=== PATIENT | female | born 1990 | race Caucasian/White ===

== ENCOUNTER → 2017-09-06 | Outpatient (CLI) | payer OTHER ==
[~2017-09-06] MED LIST: ACET325 PO; ALBU90OI INH; AMIT10 PO; AMIT25 PO; AZIT250 PO; BCP; BENTYL20 MG PO; BIRTHCONTROL; Bactrim Ds Tab1 EACH PO; CALCIUM PO; CEFU250 PO; CHOL10002; CHOL10002 PO; CIPR500 PO; CLIMARA1 EACH TOP; CLIN150 PO; CODGUAEL PO; CYCL10 PO; Colace250 MG PO; DIVA500EC; DOCU100 PO; DOXE10 PO; ESCI10; FLUT220OIA INH; Flovent 220 Ora12 GM INH; HYDACE5 PO; HYDACE5325 PO; HYDR1TAB94; HYDR1TAB94 PO; IBUP800 PO; INSLIS75I SC; IRON PO; IRON SUPPLEMENT PO; KETO10 PO; LACT10SY PO; LEVSOD25 PO; Levothyroxine200 MCG PO; MEDR150I IM; METCAR500 PO; METR500 PO; MULVITMINE PO; Miralax17 GM PO; Mobic7.5 MG PO; NAPR500EC PO; NYQUIL; Norco 5-325 Ta1 EACH PO; Nortriptyline H10 MG PO; Nuvaring Vagin1 EACH VG; ONDA4 PO; ONDA4ODT MM; ONDA8 PO; OTC DECONGESTANT; OXYACE5T PO; PANT40 PO; PARO10 PO; PARO20 PO; PROCODE120 PO; PROM25 PO; PROM25S PR; Percocet 10-321 EACH PO; Percocet 5-3251 EACH PO; Peri-Colace Ta1 EACH PO; Protonix40 MG PO; Pyridium200 MG PO; QUET100 PO; RXCYCL10 PO; RXHYDACE PO; RXTRAM50 PO; SERT25 PO; SULTRIDS PO; TRAM50 PO; Vibramycin100 MG PO; Zofran Odt4 MG PO; Zofran Odt4 MG SL; Zofran Odt8 MG SL; Zofran4 MG PO; [UNRECOGNIZED DRUG - OTHER]; [UNRECOGNIZED DRUG - OTHER]
[2017-09-06 11:10] LABS: BASOPHILS ABSOLUTE AUTO 0.03 K/mm3 (0.00-0.23); BASOPHILS PERCENT AUTO 1 % (0-2); EOSINOPHILS ABSOLUTE AUTO 0.13 K/mm3 (0.00-0.68); EOSINOPHILS PERCENT AUTO 2 % (0-6); Hematocrit 39.1 % (33.0-51.0); Hemoglobin 13.6 g/dL (11.5-16.0); IMMATURE GRAN ABSOLUTE AUTO 0.02 K/mm3 (0.00-0.10); IMMATURE GRAN PERCENT AUTO 0 % (0-1); LYMPHOCYTES ABSOLUTE AUTO 1.84 K/mm3 (0.84-5.20); LYMPHOCYTES PERCENT AUTO 28 % (21-46); MONOCYTES PERCENT AUTO 6 % (4-13); Mean Corpuscular HGB 30.6 pg (26.0-34.0); Mean Corpuscular HGB Conc 34.8 g/dL (31.5-36.5); Mean Corpuscular Volume 88 fL (80-100); Mean Platelet Volume 10.9 fL (9.1-12.4); NEUTROPHILS ABSOLUTE AUTO 4.07 K/mm3 (1.96-9.15); NEUTROPHILS PERCENT AUTO 63 % (41-73); Platelet Count 279 K/mm3 (150-400); RDW Coefficient Variation 13.2 % (11.7-14.2); RDW Standard Deviation 42.2 fL (35.1-46.3); Red Blood Cell Count 4.44 M/mm3 (3.80-5.20); White Blood Cell Count 6.49 K/mm3 (4.00-11.30)
[2017-09-06 11:23] LABS: Alanine Aminotransfer (ALT/SGP 32 U/L (12-78); Albumin, Blood 4.1 g/dL (3.4-5.0); Albumin/Globulin Ratio 1.2 (0.8-1.8); Alk Phos 82 U/L (40-126); Anion Gap 14 mmol/L (6-16); Aspartate Aminotrans (AST/SGOT 32 U/L (12-37); Bilirubin, Total 0.3 mg/dL (0.1-1.0); Blood Urea Nitrogen 19 mg/dL (8-24); Bun/Creatinine Ratio 22.6 (12.0-20.0); CO2, Blood 21 mmol/L (21-32); Calcium, Blood 9.1 mg/dL (8.5-10.1); Chloride, Blood 107 mmol/L (98-108); Creatinine, Blood 0.84 mg/dL (0.40-1.00); Globulin, Blood 3.4 g/dL (2.2-4.0); Glomerular Filtration Rate >60 (60-); Glucose, Blood 92 mg/dL (70-99); Potassium, Blood 4.5 mmol/L (3.5-5.5); Sodium, Blood 142 mmol/L (136-145); Total Protein, Blood 7.5 g/dL (6.4-8.2)
== END ==
LOC: LAB SHORT 11:04 → LAB EV 11:04
PROVIDERS: Physician Assistant Surgical
DX: R10.9 Unspecified abdominal pain (principal)
CPT/HCPCS: 80053; 85025

== ENCOUNTER 2017-10-28 08:40 | Emergency (ER) | payer OTHER ==
[~2017-10-28] VITALS: Ht 172.7 cm; Wt 77.1 kg
[2017-10-28] MEDS ORDERED: Estradiol0.5 MG (08:57)
[2017-10-28] MEDS ORDERED: Levothyroxine200 MCG PO (08:57)
[2017-10-28] MEDS ORDERED: Norco 5-325 Ta1 EACH PO (11:50)
== END 2017-10-28 12:07 | disposition home or self-care (01) ==
LOC: ER 08:40
DX: I88.9 Nonspecific lymphadenitis, unspecified (principal); N64.4 Mastodynia; K21.9 Gastro-esophageal reflux disease without esophagitis; F41.9 Anxiety disorder, unspecified; Z88.0 Allergy status to penicillin; Z88.2 Allergy status to sulfonamides; Z88.1 Allergy status to other antibiotic agents; Z88.8 Allergy status to other drugs, medicaments and biological substances; Z88.6 Allergy status to analgesic agent; Z79.899 Other long term (current) drug therapy
CPT/HCPCS: 71260; 99284; Q9967

== ENCOUNTER 2017-11-08 16:45 | Emergency (ER) | payer OTHER ==
[~2017-11-08] VITALS: Ht 175.3 cm; Wt 74.8 kg
[~2017-11-08 16:45] MED LIST changes: +Estradiol0.5 MG
[2017-11-08 17:14] LABS: BASOPHILS ABSOLUTE AUTO 0.02 K/mm3 (0.00-0.23); BASOPHILS PERCENT AUTO 0 % (0-2); EOSINOPHILS ABSOLUTE AUTO 0.04 K/mm3 (0.00-0.68); EOSINOPHILS PERCENT AUTO 0 % (0-6); Hematocrit 42.4 % (33.0-51.0); Hemoglobin 14.5 g/dL (11.5-16.0); IMMATURE GRAN ABSOLUTE AUTO 0.02 K/mm3 (0.00-0.10); IMMATURE GRAN PERCENT AUTO 0 % (0-1); LYMPHOCYTES ABSOLUTE AUTO 2.55 K/mm3 (0.84-5.20); LYMPHOCYTES PERCENT AUTO 27 % (21-46); MONOCYTES ABSOLUTE AUTO 0.61 K/mm3 (0.16-1.47); MONOCYTES PERCENT AUTO 6 % (4-13); Mean Corpuscular HGB 30.5 pg (26.0-34.0); Mean Corpuscular HGB Conc 34.2 g/dL (31.5-36.5); Mean Corpuscular Volume 89 fL (80-100); Mean Platelet Volume 10.8 fL (9.1-12.4); NEUTROPHILS ABSOLUTE AUTO 6.25 K/mm3 (1.96-9.15); NEUTROPHILS PERCENT AUTO 66 % (41-73); Platelet Count 294 K/mm3 (150-400); RDW Coefficient Variation 12.5 % (11.7-14.2); RDW Standard Deviation 40.5 fL (35.1-46.3); Red Blood Cell Count 4.76 M/mm3 (3.80-5.20); White Blood Cell Count 9.49 K/mm3 (4.00-11.30)
[2017-11-08 17:36] LABS: Alanine Aminotransfer (ALT/SGP 19 U/L (12-78); Albumin, Blood 4.5 g/dL (3.4-5.0); Albumin/Globulin Ratio 1.2 (0.8-1.8); Alk Phos 81 U/L (50-136); Anion Gap 9 mmol/L (6-16); Aspartate Aminotrans (AST/SGOT 19 U/L (12-37); Bilirubin, Total 0.4 mg/dL (0.1-1.0); Blood Urea Nitrogen 13 mg/dL (8-24); Bun/Creatinine Ratio 16.4 (12.0-20.0); CO2, Blood 22 mmol/L (21-32); Calcium, Blood 9.6 mg/dL (8.5-10.1); Chloride, Blood 112 mmol/L (98-108); Creatinine, Blood 0.79 mg/dL (0.40-1.00); Globulin, Blood 3.6 g/dL (2.2-4.0); Glomerular Filtration Rate >60 (60-); Glucose, Blood 90 mg/dL (70-99); Potassium, Blood 3.6 mmol/L (3.5-5.5); Sodium, Blood 143 mmol/L (136-145); Total Protein, Blood 8.1 g/dL (6.4-8.2)
[2017-11-08] MEDS ORDERED: Cleocin HCl300 MG PO (21:55)
[2017-11-08] MEDS ORDERED: Percocet 5-3251 EACH PO (21:55)
== END 2017-11-08 23:18 | disposition home or self-care (01) ==
LOC: ER 16:45
PROVIDERS: Emergency Medicine
DX: M94.0 Chondrocostal junction syndrome [Tietze] (principal); N61.0 Mastitis without abscess; F17.200 Nicotine dependence, unspecified, uncomplicated; Z88.0 Allergy status to penicillin; Z88.2 Allergy status to sulfonamides; Z88.1 Allergy status to other antibiotic agents; Z88.5 Allergy status to narcotic agent; Z88.8 Allergy status to other drugs, medicaments and biological substances; Z88.6 Allergy status to analgesic agent; Z79.899 Other long term (current) drug therapy
CPT/HCPCS: 36415; 71046; 80053; 85025; 93005; 93010; 96374; 96375; 99284; J1885; J2405; J3010

== ENCOUNTER → 2018-06-10 | Outpatient (CLI) | payer OTHER ==
[~2018-06-10] MED LIST changes: +Acetaminophen-1 EAC1 PO; +Cleocin HCl300 MG PO
[2018-06-12 03:10] LABS: CHLAMYDIA TRACHOMATIS, NAA Negative (Negative); NEISSERIA GONORRHOEAE, NAA Negative (Negative)
== END | disposition home or self-care (01) ==
LOC: LAB 15:27 → LAB SHORT 15:27
PROVIDERS: Nurse Practitioner Family
DX: E03.8 Other specified hypothyroidism (principal); Z72.51 High risk heterosexual behavior
CPT/HCPCS: 87491; 87591

== ENCOUNTER 2018-06-13 04:07 | Day surgery (SDC) | payer OTHER | END 2018-06-13 23:04 | disposition home or self-care (01) | LOC: MOI US 04:07 → MOI MAM 08:30 → MOI US 08:30 | DX: R92.8 Other abnormal and inconclusive findings on diagnostic imaging of breast (principal); Q85.8 Other phakomatoses, not elsewhere classified | CPT/HCPCS: 19083; 77065; 88305; A4648; G0279 ==

== ENCOUNTER → 2018-08-25 | Outpatient (CLI) | payer BC, OTHER ==
[2018-08-25 17:04] LABS: BASOPHILS ABSOLUTE AUTO 0.04 K/mm3 (0.00-0.23); BASOPHILS PERCENT AUTO 1 % (0-2); EOSINOPHILS ABSOLUTE AUTO 0.18 K/mm3 (0.00-0.68); EOSINOPHILS PERCENT AUTO 2 % (0-6); Hematocrit 39.9 % (33.0-51.0); Hemoglobin 13.7 g/dL (11.5-16.0); IMMATURE GRAN ABSOLUTE AUTO 0.01 K/mm3 (0.00-0.10); IMMATURE GRAN PERCENT AUTO 0 % (0-1); LYMPHOCYTES ABSOLUTE AUTO 2.09 K/mm3 (0.84-5.20); LYMPHOCYTES PERCENT AUTO 25 % (21-46); MONOCYTES ABSOLUTE AUTO 0.44 K/mm3 (0.16-1.47); MONOCYTES PERCENT AUTO 5 % (4-13); Mean Corpuscular HGB 30.6 pg (26.0-34.0); Mean Corpuscular HGB Conc 34.3 g/dL (31.5-36.5); Mean Corpuscular Volume 89 fL (80-100); Mean Platelet Volume 10.8 fL (9.1-12.4); NEUTROPHILS ABSOLUTE AUTO 5.65 K/mm3 (1.96-9.15); NEUTROPHILS PERCENT AUTO 67 % (41-73); Platelet Count 300 K/mm3 (150-400); RDW Standard Deviation 42.4 fL (35.1-46.3); Red Blood Cell Count 4.47 M/mm3 (3.80-5.20); White Blood Cell Count 8.41 K/mm3 (4.00-11.30)
[2018-08-25 17:14] LABS: Alanine Aminotransfer (ALT/SGP 22 U/L (12-78); Albumin, Blood 4.1 g/dL (3.4-5.0); Albumin/Globulin Ratio 1.1 (0.8-1.8); Alk Phos 89 U/L (40-126); Amylase, Blood 73 U/L (25-115); Anion Gap 10 mmol/L (6-16); Aspartate Aminotrans (AST/SGOT 18 U/L (12-37); Bilirubin, Total 0.4 mg/dL (0.1-1.0); Blood Urea Nitrogen 11 mg/dL (8-24); Bun/Creatinine Ratio 13.8 (12.0-20.0); CO2, Blood 25 mmol/L (21-32); Calcium, Blood 8.5 mg/dL (8.5-10.1); Chloride, Blood 104 mmol/L (98-108); Globulin, Blood 3.6 g/dL (2.2-4.0); Glomerular Filtration Rate >60 (60-); Glucose, Blood 93 mg/dL (70-99); Potassium, Blood 3.5 mmol/L (3.5-5.5); Sodium, Blood 139 mmol/L (136-145); Total Protein, Blood 7.7 g/dL (6.4-8.2)
== END ==
LOC: LAB EV 16:58 → LAB SHORT 16:58
PROVIDERS: Emergency Medicine
DX: R11.2 Nausea with vomiting, unspecified (principal)
CPT/HCPCS: 80053; 82150; 83690; 85025

== ENCOUNTER → 2019-01-04 | Outpatient (CLI) | payer OTHER ==
[2019-01-04 11:19] LABS: BASOPHILS ABSOLUTE AUTO 0.02 K/mm3 (0.00-0.23); BASOPHILS PERCENT AUTO 0 % (0-2); EOSINOPHILS ABSOLUTE AUTO 0.16 K/mm3 (0.00-0.68); EOSINOPHILS PERCENT AUTO 3 % (0-6); Hematocrit 38.8 % (33.0-51.0); Hemoglobin 13.3 g/dL (11.5-16.0); IMMATURE GRAN ABSOLUTE AUTO 0.01 K/mm3 (0.00-0.10); IMMATURE GRAN PERCENT AUTO 0 % (0-1); LYMPHOCYTES ABSOLUTE AUTO 2.09 K/mm3 (0.84-5.20); LYMPHOCYTES PERCENT AUTO 35 % (21-46); MONOCYTES ABSOLUTE AUTO 0.47 K/mm3 (0.16-1.47); MONOCYTES PERCENT AUTO 8 % (4-13); Mean Corpuscular HGB 30.9 pg (26.0-34.0); Mean Corpuscular HGB Conc 34.3 g/dL (31.5-36.5); Mean Corpuscular Volume 90 fL (80-100); Mean Platelet Volume 10.2 fL (9.1-12.4); NEUTROPHILS ABSOLUTE AUTO 3.28 K/mm3 (1.96-9.15); NEUTROPHILS PERCENT AUTO 54 % (41-73); Platelet Count 292 K/mm3 (150-400); RDW Coefficient Variation 12.9 % (11.7-14.2); RDW Standard Deviation 42.6 fL (35.1-46.3); Red Blood Cell Count 4.31 M/mm3 (3.80-5.20); White Blood Cell Count 6.03 K/mm3 (4.00-11.30)
[2019-01-04 11:54] LABS: Alanine Aminotransfer (ALT/SGP 31 U/L (12-78); Alk Phos 73 U/L (50-136); Anion Gap 9 mmol/L (6-16); Aspartate Aminotrans (AST/SGOT 22 U/L (12-37); Bilirubin, Total 0.3 mg/dL (0.1-1.0); Blood Urea Nitrogen 17 mg/dL (8-24); CO2, Blood 23 mmol/L (21-32); Calcium, Blood 8.7 mg/dL (8.5-10.1); Chloride, Blood 111 mmol/L (98-108); Creatinine, Blood 0.68 mg/dL (0.40-1.00); Globulin, Blood 3.9 g/dL (2.2-4.0); Glomerular Filtration Rate >60 (60-); Glucose, Blood 90 mg/dL (70-99); Sodium, Blood 143 mmol/L (136-145); Total Protein, Blood 7.9 g/dL (6.4-8.2)
[2019-01-07 04:07] LABS: CHLAMYDIA BY NAA Negative (Negative); GONOCOCCUS BY NAA Negative (Negative); TRICH VAG BY NAA Negative (Negative)
== END | disposition home or self-care (01) ==
LOC: LAB SHORT 11:09 → LAB EV 11:09
PROVIDERS: Physician Assistant
DX: R10.9 Unspecified abdominal pain (principal); R10.2 Pelvic and perineal pain
CPT/HCPCS: 80053; 83690; 85025; 87070; 87205; 87491; 87591; 87661

== ENCOUNTER 2019-01-23 10:51 | Day surgery (SDC) | payer OTHER ==
[~2019-01-23] VITALS: Ht 172.7 cm; Wt 69.8 kg
--- NOTE | 2019-01-23 13:46 | NUR ---
01/23/19 1346 Daphne Philip LATE ENTRY---UPON ARRIVAL TO STEPDOWN PATIENT C/O 8/10 ABDOMINAL PAIN THAT IS SHARP IN NATURE ON HER RIGHT SIDE. DR MCKEE EVALUATED PAIN AND ORDERED TO WATCH FOR 5 MINUTES. PATIENT GIVEN WARM BLANKET TO PUT OVER THE AREA AND WARM BLANKET TO COVER HER. DR MCKEE BACK IN ROOM AND ASSESS PATIENT SHE ADMITS PAIN NOW 6/10 HE GIVES ORDER FOR FENTANYL 25MCG NOW ONE DOSE THEN DISCHARGE THE PATIENT TO HOME. MEDICATION GIVEN PER ORDER. PATIENT GIVEN 10 MINUTES TO REST THEN SHE RATED HER PAIN 4/10 AND FEELING BETTER. DISCHARGED PER MD ORDER
== END 2019-01-23 13:30 | disposition home or self-care (01) ==
LOC: ORSCSDS 10:51
PROVIDERS: Internal Medicine Gastroenterology
PROC: 0DB98ZX Excision of Duodenum, Via Natural or Artificial Opening Endoscopic, Diagnostic (ICD-10-PCS; principal; 2019-01-23 12:15)
PROC: 0DB58ZX Excision of Esophagus, Via Natural or Artificial Opening Endoscopic, Diagnostic (ICD-10-PCS; principal; 2019-01-23 12:15)
PROC: 0DBE8ZX Excision of Large Intestine, Via Natural or Artificial Opening Endoscopic, Diagnostic (ICD-10-PCS; principal; 2019-01-23 12:15)
PROC: 0DB68ZX Excision of Stomach, Via Natural or Artificial Opening Endoscopic, Diagnostic (ICD-10-PCS; principal; 2019-01-23 12:15)
DX: R63.4 Abnormal weight loss (principal); R11.0 Nausea; D36.10 Benign neoplasm of peripheral nerves and autonomic nervous system, unspecified; K64.8 Other hemorrhoids; K44.9 Diaphragmatic hernia without obstruction or gangrene; J45.909 Unspecified asthma, uncomplicated; E03.9 Hypothyroidism, unspecified; F41.9 Anxiety disorder, unspecified; Z79.899 Other long term (current) drug therapy
CPT/HCPCS: 88305; 88342; J2704; J3010; J7120

== ENCOUNTER → 2019-02-19 | Outpatient (CLI) | payer OTHER ==
[2019-02-20 09:52] LABS: Candida species (DNA Probe) Positive (NEGATIVE); G. vaginalis (DNA Probe) Negative (NEGATIVE); T. vaginalis (DNA Probe) Negative (NEGATIVE)
== END ==
LOC: LAB EV 08:30 → LAB SHORT 08:30
PROVIDERS: Nurse Practitioner Family
DX: N76.0 Acute vaginitis (principal)
CPT/HCPCS: 87480; 87510; 87660

== ENCOUNTER → 2019-09-22 | Outpatient (CLI) | payer OTHER | END | disposition home or self-care (01) | LOC: LAB SHORT 14:06 → PLD 14:06 | DX: D37.05 Neoplasm of uncertain behavior of pharynx (principal) | CPT/HCPCS: 88305 ==

== ENCOUNTER → 2020-02-17 | Outpatient (CLI) | payer OTHER | END | disposition home or self-care (01) | LOC: LAB 18:13 → LAB SHORT 18:13 | DX: R30.0 Dysuria (principal) | CPT/HCPCS: 87086 ==

== ENCOUNTER 2023-11-18 16:29 | Emergency (ER) | payer OTHER ==
[~2023-11-18] VITALS: Ht 170.2 cm; Wt 81.7 kg
[~2023-11-18 16:29] MED LIST changes: +ACET500 PO; +DHEA25 M1 PO; +DOCU100; +HYDPAM50 PO; +MULVITA PO; +OMEP20ER; +OXYB5ER PO; +PARO30 PO
[2023-11-18 16:37] VITALS: BP 135/106
[2023-11-18] MEDS ORDERED: Diphth,Pertuss(Acell),Tet Vac 0.5 ML VIAL IM ONE (16:40)
[2023-11-18] MEDS ORDERED: Ketorolac Tromethamine 30mg Vial IM ONE (17:15)
== END 2023-11-18 18:33 | disposition home or self-care (01) ==
LOC: ER 16:29
DX: S91.332A Puncture wound without foreign body, left foot, initial encounter (principal); F17.200 Nicotine dependence, unspecified, uncomplicated; E03.9 Hypothyroidism, unspecified; W27.1XXA Contact with garden tool, initial encounter; Z23 Encounter for immunization; Z79.899 Other long term (current) drug therapy; Z88.0 Allergy status to penicillin; Z88.2 Allergy status to sulfonamides; Z88.1 Allergy status to other antibiotic agents; Z88.5 Allergy status to narcotic agent; Z88.6 Allergy status to analgesic agent
CPT/HCPCS: 12001; 73630; 90471; 90715; 96372-59; 99283-25; J1885

== ENCOUNTER 2024-05-22 11:24 | Emergency (ER) | payer OTHER ==
[~2024-05-22] VITALS: Ht 167.6 cm; Wt 68.0 kg
[2024-05-22] MEDS ORDERED: LORazepam 1 MG Tab PO ONE (11:30)
[2024-05-22] MEDS ORDERED: Ondansetron 4 MG SoluTab SL ONE (11:40)
[2024-05-22] MEDS ORDERED: Albuterol 2.5 MG/3 ML VIAL INH ONE (12:30)
[2024-05-22 13:10] LABS: BASOPHILS ABSOLUTE AUTO 0.03 K/mm3 (0.00-0.23); BASOPHILS PERCENT AUTO 0 % (0-2); EOSINOPHILS ABSOLUTE AUTO 0.14 K/mm3 (0.00-0.68); EOSINOPHILS PERCENT AUTO 2 % (0-6); Hemoglobin 14.7 g/dL (11.5-16.0); IMMATURE GRAN ABSOLUTE AUTO 0.02 K/mm3 (0.00-0.10); IMMATURE GRAN PERCENT AUTO 0 % (0-1); LYMPHOCYTES ABSOLUTE AUTO 3.16 K/mm3 (0.84-5.20); LYMPHOCYTES PERCENT AUTO 38 % (21-46); MONOCYTES ABSOLUTE AUTO 0.48 K/mm3 (0.16-1.47); MONOCYTES PERCENT AUTO 6 % (4-13); Mean Corpuscular HGB 30.3 pg (26.0-34.0); Mean Corpuscular Volume 87 fL (80-100); Mean Platelet Volume 10.1 fL (9.1-12.4); NEUTROPHILS ABSOLUTE AUTO 4.58 K/mm3 (1.96-9.15); NEUTROPHILS PERCENT AUTO 54 % (41-73); Platelet Count 367 K/mm3 (150-400); RDW Coefficient Variation 12.8 % (11.7-14.2); Red Blood Cell Count 4.85 M/mm3 (3.80-5.20); White Blood Cell Count 8.41 K/mm3 (4.00-11.30)
[2024-05-22] MEDS ORDERED: Acetaminophen 500 MG Tab PO ONE (13:15)
[2024-05-22] MEDS ORDERED: LORazepam 2 MG/ML 1ML Injection IV PRN (13:15)
[2024-05-22 13:29] LABS: Albumin, Blood 4.3 g/dL (3.4-5.0); Albumin/Globulin Ratio 1.1 (0.8-1.8); Bilirubin, Total 0.6 mg/dL (0.1-1.0); Bun/Creatinine Ratio 10.4 (12.0-20.0); Calcium, Blood 9.9 mg/dL (8.5-10.1); Creatinine, Blood 0.86 mg/dL (0.40-1.00); Globulin, Blood 3.8 g/dL (2.2-4.0); Potassium, Blood 3.7 mmol/L (3.5-5.5); Total Protein, Blood 8.1 g/dL (6.4-8.2)
[2024-05-22] MEDS ORDERED: Ondansetron HCl 2 MG / ML 2ML Vial IV ONE (13:35)
[2024-05-22] MEDS ORDERED: FentaNYL Citrate 50 MCG/ML 2 ML Injection IV PRN (14:40)
[2024-05-22 15:06] VITALS: BP 124/93
[2024-05-22] MEDS ORDERED: LORA.5 PO (15:30)
[2024-05-22] MEDS ORDERED: Percocet 5-3251 EACH PO (15:30)
[2024-05-22] MEDS ORDERED: ONDA4ODT MM (15:40)
== END 2024-05-22 15:54 | disposition home or self-care (01) ==
LOC: ER 11:24
PROVIDERS: Student in an Organized Health Care Education/Training Program
DX: F41.9 Anxiety disorder, unspecified (principal); R07.89 Other chest pain; F17.290 Nicotine dependence, other tobacco product, uncomplicated; Z88.0 Allergy status to penicillin; Z88.1 Allergy status to other antibiotic agents; Z88.2 Allergy status to sulfonamides; Z88.5 Allergy status to narcotic agent; Z88.6 Allergy status to analgesic agent; Z88.8 Allergy status to other drugs, medicaments and biological substances; Z79.890 Hormone replacement therapy; Z79.899 Other long term (current) drug therapy
CPT/HCPCS: 71046; 71260; 80053; 84484; 85025; 85379; 93005; 93010; 94640; 94664; 96374; 96375; 99284-25; A9270; J2060; J2405; J3010; Q9967

== ENCOUNTER 2024-06-21 16:26 | Inpatient (IN) | payer OTHER ==
[~2024-06-21] VITALS: Ht 170.2 cm; Wt 83.0 kg
[~2024-06-21 16:26] MED LIST changes: +LORA.5 PO
[2024-06-21] MEDS ORDERED: HYDROmorphone HCl/Pf 1MG SYR IV ONE ×2 (17:20→20:05)
[2024-06-21] MEDS ORDERED: Ondansetron HCl 2 MG / ML 2ML Vial IV ONE (17:25)
[2024-06-21] MEDS ORDERED: LEVSOD150 PO (17:34)
[2024-06-21] MEDS ORDERED: ESZO3 PO (17:34)
[2024-06-21] MEDS ORDERED: PARO20 PO (17:34)
[2024-06-21] MEDS ORDERED: Oxybutynin Chlo10 MG PO (17:34)
[2024-06-21 17:50] LABS: BASOPHILS ABSOLUTE AUTO 0.04 K/mm3 (0.00-0.23); BASOPHILS PERCENT AUTO 1 % (0-2); EOSINOPHILS ABSOLUTE AUTO 0.14 K/mm3 (0.00-0.68); EOSINOPHILS PERCENT AUTO 2 % (0-6); Hematocrit 41.3 % (33.0-51.0); Hemoglobin 14.5 g/dL (11.5-16.0); IMMATURE GRAN ABSOLUTE AUTO 0.04 K/mm3 (0.00-0.10); IMMATURE GRAN PERCENT AUTO 1 % (0-1); LYMPHOCYTES ABSOLUTE AUTO 2.69 K/mm3 (0.84-5.20); LYMPHOCYTES PERCENT AUTO 36 % (21-46); MONOCYTES ABSOLUTE AUTO 0.45 K/mm3 (0.16-1.47); MONOCYTES PERCENT AUTO 6 % (4-13); Mean Corpuscular HGB 29.8 pg (26.0-34.0); Mean Corpuscular HGB Conc 35.1 g/dL (31.5-36.5); Mean Corpuscular Volume 85 fL (80-100); Mean Platelet Volume 10.7 fL (9.1-12.4); NEUTROPHILS PERCENT AUTO 56 % (41-73); Platelet Count 350 K/mm3 (150-400); RDW Coefficient Variation 12.2 % (11.7-14.2); RDW Standard Deviation 37.4 fL (35.1-46.3); Red Blood Cell Count 4.87 M/mm3 (3.80-5.20); White Blood Cell Count 7.56 K/mm3 (4.00-11.30)
[2024-06-21 17:55] LABS: Albumin, Blood 4.2 g/dL (3.4-5.0); Albumin/Globulin Ratio 1.1 (0.8-1.8); Bilirubin, Total 0.3 mg/dL (0.1-1.0); Bun/Creatinine Ratio 14.6 (12.0-20.0); Calcium, Blood 9.5 mg/dL (8.5-10.1); Creatinine, Blood 0.68 mg/dL (0.40-1.00); Globulin, Blood 3.8 g/dL (2.2-4.0); Potassium, Blood 3.6 mmol/L (3.5-5.5)
[2024-06-21] MEDS ORDERED: Lidocaine 4% 1 Patch TOP ONE (18:15)
[2024-06-21] MEDS ORDERED: Acetaminophen 500 MG Tab PO ONE (18:15)
[2024-06-21] MEDS ORDERED: LORazepam 2 MG/ML 1ML Injection IV ONE ×2 (18:15→18:40)
[2024-06-21] MEDS ORDERED: Ketorolac Tromethamine 15mg Vial IV ONE (18:15)
[2024-06-21] MEDS ORDERED: NS 1,000 ML IV SCH (22:00)
[2024-06-21] MEDS ORDERED: FLU VACC TS2024-25(6MOS UP)/PF 45 MCG/0.5 ML SYRINGE IM SCH (22:00)
[2024-06-21] MEDS ORDERED: Enoxaparin 40 MG/0.4 ML SYR SC SCH (22:00)
[2024-06-21] MEDS ORDERED: Ondansetron HCl 2 MG / ML 2ML Vial IV PRN (22:00)
[2024-06-21] MEDS ORDERED: FentaNYL Citrate 50 MCG/ML 2 ML Injection IV PRN (22:00)
[2024-06-21] MEDS ORDERED: NEURONTIN300 MG PO (23:43)
[2024-06-21] MEDS ORDERED: Docusate Sodium 100 MG Cap PO PRN ×2 (23:45→23:50)
[2024-06-21] MEDS ORDERED: Zolpidem Tartrate 5 MG Tab PO SCH (23:48)
--- NOTE | 2024-06-21 23:53 | NUR ---
CALLED ER AND GOT REPORT FROM GRACIE DURAN AT 0739. STS WILL START FLUIDS AND GIVE PAIN MEDICATION AND THEN BRING PT UP TO 333. REPORT PASSED ON FROM ME TO PRIMARY RN AT [id number].
[2024-06-22 00:01] LABS: Free Thyroxine 1.82 ng/dL (0.70-1.60)
[2024-06-22 00:03] LABS: Thyroid Stimulating Hormone 0.074 uIU/mL (0.360-4.800)
[2024-06-22 00:31] VITALS: BP 115/79
[2024-06-22 00:36] LABS: Source, Urine Clean Catch
[2024-06-22 00:45] LABS: Bilirubin, Urine Neg (Neg); Blood, Urine Neg (Neg); Glucose Qualitative, Urine Neg (Neg); Ketones, Urine Neg (Neg); Leukocyte Esterase, Urine 1+ (Neg); Nitrite, Urine Neg (Neg); Protein, Urine Neg (Neg); Urobilinogen, Urine NORM (Normal)
[2024-06-22 00:51] LABS: Appearance, Urine Clear (Clear); Color, Urine Yellow (P-Yellow)
[2024-06-22 00:52] LABS: Bacteria Few /hpf; Red Blood Cells, Urine Not Seen /hpf (0-2); Squamous Epithelial Cells Few /hpf (Few); White Blood Cells, Urine 0-2 /hpf (0-5)
--- NOTE | 2024-06-22 02:11 | NUR ---
ADMIT NOTE FOR 0020 REPORT WAS RECEIVED FROM THE ER. PT WAS BROUGHT DOWN ON THE GURNEY AND TRANSFERRED OVER TO THE BED. PT ALERT ORIENTED X 4 ABLE TO VERBALIZE NEEDS AMBULATES TO BATHROOM WITH SBA. C/O BACK AND SIDE PAIN MEDICATED WITH FENTANYL WITH GOOD PAIN RELIEF. NO SKIN CONCERNS ON ADMIT. SHE WAS ORIENTED TO THE STAFF AND ROOM. REMAINS ON TELEMETRY AT NSR AT 86. REMAINS ON NS AT 100. SHE IS CURRENTLY NPO R/T NAUSEA. SHE HAS A HX OF BILATERAL MASTECTOMY. SHES RESTING IN BEDAT THIS TIME WITH CALL LIGHT IN REACH
--- NOTE | 2024-06-22 04:22 | NUR ---
SHIFT SUMMARY PT ALERT ORIENTED X 4 ABLE TO VERBALIZE NEEDS CALLS APPROPRIATELY. GETS UP TO BATHROOM WITH SBA. C/O SEVERE BACK PAIN MEDICATED WITH FENTANYL WITH GOOD RELIEF. SHE WAS ADMITTED FROM ER AT 0020 WITH DX OF BACK PAIN AND HX OF OVARIAN AND KIDNEY CANCER. REMAINS ON NS AT 75. SHE REMAINS NPO R/T NAUSEA REMAINS ON TELEMETRY AT NSR SHES HAD BILATERAL MASTEWCTOMIES. RESTING IN BED AT THIS TIME WITH CALL LIGHT IN REACH
[2024-06-22 05:37] VITALS: BP 111/78
[2024-06-22 05:52] LABS: BASOPHILS ABSOLUTE AUTO 0.03 K/mm3 (0.00-0.23); BASOPHILS PERCENT AUTO 1 % (0-2); EOSINOPHILS PERCENT AUTO 4 % (0-6); Hemoglobin 13.2 g/dL (11.5-16.0); IMMATURE GRAN ABSOLUTE AUTO 0.01 K/mm3 (0.00-0.10); IMMATURE GRAN PERCENT AUTO 0 % (0-1); LYMPHOCYTES ABSOLUTE AUTO 2.09 K/mm3 (0.84-5.20); LYMPHOCYTES PERCENT AUTO 39 % (21-46); MONOCYTES ABSOLUTE AUTO 0.59 K/mm3 (0.16-1.47); MONOCYTES PERCENT AUTO 11 % (4-13); Mean Corpuscular HGB 29.7 pg (26.0-34.0); Mean Platelet Volume 10.6 fL (9.1-12.4); NEUTROPHILS ABSOLUTE AUTO 2.51 K/mm3 (1.96-9.15); NEUTROPHILS PERCENT AUTO 46 % (41-73); Platelet Count 301 K/mm3 (150-400); RDW Coefficient Variation 12.5 % (11.7-14.2); RDW Standard Deviation 40.5 fL (35.1-46.3); Red Blood Cell Count 4.44 M/mm3 (3.80-5.20); White Blood Cell Count 5.43 K/mm3 (4.00-11.30)
[2024-06-22 05:53] LABS: Mean Corpuscular Volume 90 fL (80-100)
[2024-06-22] MEDS ORDERED: Levothyroxine Sodium 0.15 MG Tab PO SCH ×2 (06:00)
[2024-06-22 06:22] LABS: Albumin, Blood 3.6 g/dL (3.4-5.0); Albumin/Globulin Ratio 1.1 (0.8-1.8); Bilirubin, Total 0.4 mg/dL (0.1-1.0); Bun/Creatinine Ratio 12.6 (12.0-20.0); Calcium, Blood 9.1 mg/dL (8.5-10.1); Creatinine, Blood 1.03 mg/dL (0.40-1.00); Globulin, Blood 3.4 g/dL (2.2-4.0); Potassium, Blood 4.3 mmol/L (3.5-5.5)
[2024-06-22 07:20] VITALS: BP 88/64
[2024-06-22] MEDS ORDERED: OxyCODONE HCL 5 MG TAB PO PRN (08:20)
[2024-06-22] MEDS ORDERED: LORazepam 2 MG/ML 1ML Injection IV PRN (08:30)
[2024-06-22] MEDS ORDERED: HYDROmorphone HCl/Pf 1MG SYR IV PRN (08:30)
[2024-06-22] MEDS ORDERED: PARoxetine HCl 20 MG Tab PO SCH ×2 (09:00)
[2024-06-22] MEDS ORDERED: oxyBUTYnin chloride 5 MG TAB PO SCH ×2 (09:00)
[2024-06-22 09:58] VITALS: BP 103/81
[2024-06-22 16:11] VITALS: BP 92/55
--- NOTE | 2024-06-22 18:33 | NUR ---
PATIENT A/OX4, UP WITH SBA TO BSC. VERY PAINFUL THIS SHIFT, ALTERNATING BETWEEN FENTANYL, DILAUDID AND OXYCODONE. MAINTAINING SATS >95% ON RA. 1 EPISODE OF VOMITTING, ZOFRAN GIVEN X2 THIS SHIFT TO CONTROL NAUSEA. PATIENT TO HAVE MRI OF SPINE TOMORROW, UNABLE TO DO TODAY BECAUSE 24 HOURS MUST PASS BEFORE CONTRAST CAN BE GIVEN AGAIN. ATIVAN ORDERED PRIOR TO MRI. PATIENT PLEASANT AND COOPERATIVE, ABLE TO MAKE NEEDS KNOWN.
[2024-06-22 19:23] VITALS: BP 101/62
[2024-06-23 03:17] VITALS: BP 98/56
--- NOTE | 2024-06-23 04:56 | NUR ---
SHIFT SUMMARY 33 YR F ADMITTED ON 06/22/24. FULL CODE. NO ACUTE CHANGES THIS SHIFT. PT HAS BEEN PAINFUL ALL SHIFT IN HER BACK AND SHOULDERS. MEDICATED W/ DILAUIDID AND OXY. NO FENTANYL GIVEN THIS SHIFT. PT HAS HAD NO C/O N/V THIS SHIFT. CONTINUOUS PULSE BIOX WAS REMOVED DUE TO A GREATER NEED FOR ANOTHER PT AND A SHORTAGE OF THEM HOSPITAL WIDE. O2 SATS STAYED WNL UNTIL TIME IT WAS DC'D. PT IS SBA TO BEDSIDE COMMODE AND CALLS APPROPRIATELY FOR ASSISTANCE. WILL CONTINUE TO MONITOR. BED IN LOW POSITION AND CALL LIGHT IN REACH.
[2024-06-23 07:00] VITALS: BP 120/71
[2024-06-23 07:06] LABS: BASOPHILS ABSOLUTE AUTO 0.02 K/mm3 (0.00-0.23); BASOPHILS PERCENT AUTO 0 % (0-2); EOSINOPHILS ABSOLUTE AUTO 0.18 K/mm3 (0.00-0.68); EOSINOPHILS PERCENT AUTO 3 % (0-6); Hematocrit 38.9 % (33.0-51.0); Hemoglobin 12.8 g/dL (11.5-16.0); IMMATURE GRAN ABSOLUTE AUTO 0.01 K/mm3 (0.00-0.10); IMMATURE GRAN PERCENT AUTO 0 % (0-1); LYMPHOCYTES ABSOLUTE AUTO 2.21 K/mm3 (0.84-5.20); LYMPHOCYTES PERCENT AUTO 40 % (21-46); MONOCYTES ABSOLUTE AUTO 0.45 K/mm3 (0.16-1.47); MONOCYTES PERCENT AUTO 8 % (4-13); Mean Corpuscular HGB 29.8 pg (26.0-34.0); Mean Corpuscular HGB Conc 32.9 g/dL (31.5-36.5); Mean Corpuscular Volume 91 fL (80-100); Mean Platelet Volume 10.7 fL (9.1-12.4); NEUTROPHILS ABSOLUTE AUTO 2.69 K/mm3 (1.96-9.15); NEUTROPHILS PERCENT AUTO 48 % (41-73); Platelet Count 283 K/mm3 (150-400); RDW Coefficient Variation 12.6 % (11.7-14.2); RDW Standard Deviation 41.2 fL (35.1-46.3); Red Blood Cell Count 4.29 M/mm3 (3.80-5.20); White Blood Cell Count 5.56 K/mm3 (4.00-11.30)
[2024-06-23 07:22] LABS: Bun/Creatinine Ratio 8.5 (12.0-20.0); Calcium, Blood 8.6 mg/dL (8.5-10.1); Creatinine, Blood 0.94 mg/dL (0.40-1.00); Potassium, Blood 3.8 mmol/L (3.5-5.5)
[2024-06-23] MEDS ORDERED: Calcium Carbonate 500 MG Tab Chew PO PRN (07:45)
[2024-06-23] MEDS ORDERED: Ondansetron HCl 2 MG / ML 2ML Vial IV PRN (07:45)
[2024-06-23] MEDS ORDERED: OxyCODONE 5 mg/Acetamin 325 mg TABLET PO PRN (07:50)
[2024-06-23] MEDS ORDERED: FentaNYL Citrate 50 MCG/ML 2 ML Injection IV PRN (15:35)
--- NOTE | 2024-06-23 17:38 | NUR ---
PATIENT DC'D TO HOME WITH FAMILY. DC INSTRUCTIONS AND EDUCATION DISCUSSED WITH PATIENT AND COPY PROVIDED. RX MEDICATIONS SENT TO [employer]. PATIENT DENIES ANY FURTHER QUESTIONS OR CONCERNS.
--- NOTE | 2024-06-23 17:47 | NUR ---
PATIENT A/OX4, UP WITH SBA TO BSC. BACK PAIN THAT RADIATES TO R SIDE PERSISTS. DILAUDID, FENTANYL AND OXYCODONE GIVEN TO TREAT. ZOFRAN GIVEN X2 FOR NAUSEA/VOMITTING WITH STATED RELEIF. PATIENT WENT DOWN FOR MRI, BUT WAS UNABLE TO STAY STILL LONG ENOUGH TO GET CLEAR IMAGES PER PATIENT. VSS, ON RA. CONTINUOUS BIOX IN USE. ANXIOUS, BUT COOPERATIVE WITH CARE AND ABLE TO MAKE NEEDS KNOWN.
[2024-06-24 03:08] VITALS: BP 106/77
--- NOTE | 2024-06-24 03:43 | NUR ---
SHIFT SUMMARY PT'S PAIN IS NOT WELL CONTROLLED W/ PRESCRIBED MEDS. SHE IS REQUESTING PAIN MEDS APPROX EVERY HOUR OR SOONER. SHE IS CURRENTLY RECEIVING FENTANYL, DILAUDID, AND OXYCODONE. SHE STATES PAIN LEVELS FROM 8-10. AT TIMES SHE SOBS UNCONTROLABLY. SHE SAYS VERY LITTLE EXCEPT TO EXPRESS HER PAIN. CONTINUOUS BIOX IN PLACE. O2 SATS DROPPED TO 86/87 VERY BRIEFLY TWICE DURING THIS SHIFT THEN WENT BACK UP TO 90'S. PT HAS NO C/O SOB OR CHEST PAIN. WILL CONTINUE TO MONITOR AND REPORT TO DAYSHIFT. BED IN LOW POSITION AND CALL LIGHT IN REACH.
[2024-06-24] MEDS ORDERED: OxyCODONE 5 mg/Acetamin 325 mg TABLET PO PRN (06:35)
[2024-06-24 07:23] VITALS: BP 96/69
[2024-06-24] MEDS ORDERED: OxyCODONE 10/Acetamin 325 TABLET PO PRN (07:45)
[2024-06-24 07:57] LABS: BASOPHILS ABSOLUTE AUTO 0.03 K/mm3 (0.00-0.23); BASOPHILS PERCENT AUTO 0 % (0-2); EOSINOPHILS ABSOLUTE AUTO 0.12 K/mm3 (0.00-0.68); EOSINOPHILS PERCENT AUTO 2 % (0-6); Hematocrit 40.7 % (33.0-51.0); Hemoglobin 13.7 g/dL (11.5-16.0); IMMATURE GRAN ABSOLUTE AUTO 0.02 K/mm3 (0.00-0.10); IMMATURE GRAN PERCENT AUTO 0 % (0-1); LYMPHOCYTES ABSOLUTE AUTO 1.36 K/mm3 (0.84-5.20); LYMPHOCYTES PERCENT AUTO 17 % (21-46); MONOCYTES ABSOLUTE AUTO 0.55 K/mm3 (0.16-1.47); MONOCYTES PERCENT AUTO 7 % (4-13); Mean Corpuscular HGB 29.8 pg (26.0-34.0); Mean Corpuscular HGB Conc 33.7 g/dL (31.5-36.5); Mean Corpuscular Volume 89 fL (80-100); Mean Platelet Volume 10.7 fL (9.1-12.4); NEUTROPHILS ABSOLUTE AUTO 5.74 K/mm3 (1.96-9.15); NEUTROPHILS PERCENT AUTO 73 % (41-73); Platelet Count 310 K/mm3 (150-400); RDW Coefficient Variation 12.4 % (11.7-14.2); White Blood Cell Count 7.82 K/mm3 (4.00-11.30)
[2024-06-24 08:21] LABS: Bun/Creatinine Ratio 9.7 (12.0-20.0); Calcium, Blood 9.4 mg/dL (8.5-10.1); Creatinine, Blood 0.92 mg/dL (0.40-1.00); Potassium, Blood 4.1 mmol/L (3.5-5.5)
[2024-06-24] MEDS ORDERED: Bisacodyl 10 MG Supp PR PRN (09:35)
[2024-06-24] MEDS ORDERED: Polyethylene Glycol 3350 17 gm PO PRN (09:35)
[2024-06-24] MEDS ORDERED: Cyclobenzaprine HCl 10 MG Tab PO PRN (11:37)
[2024-06-24 15:49] VITALS: BP 99/60
--- NOTE | 2024-06-24 18:37 | NUR ---
PATIENT A/OX4 UP WITH SBA TO BSC. PAIN BETTER MANAGED THIS SHIFT WITH ORAL OXYCODONE AND FLEXERIL. ZOFRAN GIVEN X1 FOR NAUSEA. NO NEW CONCERNS THIS SHIFT. PATIENT COOPERATIVE AND ABLE TO MAKE NEEDS KNOWN.
[2024-06-24 19:20] VITALS: BP 126/93
[2024-06-24] MEDS ORDERED: Sennosides 8.6 MG Tab PO SCH (21:00)
[2024-06-24] MEDS ORDERED: DiphenhydrAMINE HCL 25 MG Cap PO ONE (21:25)
[2024-06-25 02:35] VITALS: BP 125/80
[2024-06-25 06:01] LABS: BASOPHILS ABSOLUTE AUTO 0.03 K/mm3 (0.00-0.23); BASOPHILS PERCENT AUTO 1 % (0-2); EOSINOPHILS ABSOLUTE AUTO 0.21 K/mm3 (0.00-0.68); EOSINOPHILS PERCENT AUTO 4 % (0-6); Hematocrit 39.9 % (33.0-51.0); Hemoglobin 13.4 g/dL (11.5-16.0); IMMATURE GRAN ABSOLUTE AUTO 0.01 K/mm3 (0.00-0.10); IMMATURE GRAN PERCENT AUTO 0 % (0-1); LYMPHOCYTES ABSOLUTE AUTO 2.12 K/mm3 (0.84-5.20); LYMPHOCYTES PERCENT AUTO 40 % (21-46); MONOCYTES PERCENT AUTO 9 % (4-13); Mean Corpuscular HGB 29.8 pg (26.0-34.0); Mean Corpuscular HGB Conc 33.6 g/dL (31.5-36.5); Mean Corpuscular Volume 89 fL (80-100); Mean Platelet Volume 10.7 fL (9.1-12.4); NEUTROPHILS PERCENT AUTO 47 % (41-73); Platelet Count 279 K/mm3 (150-400); RDW Coefficient Variation 12.5 % (11.7-14.2); RDW Standard Deviation 40.8 fL (35.1-46.3); White Blood Cell Count 5.37 K/mm3 (4.00-11.30)
[2024-06-25 06:08] LABS: Bun/Creatinine Ratio 7.8 (12.0-20.0); Creatinine, Blood 1.15 mg/dL (0.40-1.00); Potassium, Blood 3.8 mmol/L (3.5-5.5)
--- NOTE | 2024-06-25 06:08 | NUR ---
SHIFT SUMMARY AT BEGINNING OF SHIFT, PT LYING IN BED, VISITING WITH FAMILY. AFTER THEY LEFT, PT MEDICATED WITH 2100 MEDS. PT WENT TO SLEEP, WAKING THROUGH THE NIGHT FOR PAIN MEDICATION ADMINISTRATION APPROX Q2HRS. PT PAIN LEVEL CAUSING HER TO CRY WHEN NEEDING NEXT MEDICATION DOSE. PT STATED HER IV SITE WAS FEELING ITCHY. PO ONE TIME BENEDRYL ORDERED AND ADMINISTERED. PT REFLUX GETTING WORSE TOO, TUMS ADMINISTERED TO PT. PT HAS BEEN OTHERWISE PLEASANT AND COOPERATIVE WITH CARE.
[2024-06-25] MEDS ORDERED: Omeprazole 20 MG CapCR PO SCH (07:00)
[2024-06-25 08:07] VITALS: BP 100/60
[2024-06-25 16:15] VITALS: BP 117/92
[2024-06-25 19:30] VITALS: BP 118/87
[2024-06-26 03:00] VITALS: BP 109/72
[2024-06-26 06:05] VITALS: BP 90/61
[2024-06-26 06:24] LABS: BASOPHILS ABSOLUTE AUTO 0.03 K/mm3 (0.00-0.23); BASOPHILS PERCENT AUTO 1 % (0-2); EOSINOPHILS ABSOLUTE AUTO 0.18 K/mm3 (0.00-0.68); EOSINOPHILS PERCENT AUTO 3 % (0-6); Hematocrit 39.9 % (33.0-51.0); Hemoglobin 13.7 g/dL (11.5-16.0); IMMATURE GRAN ABSOLUTE AUTO 0.04 K/mm3 (0.00-0.10); IMMATURE GRAN PERCENT AUTO 1 % (0-1); LYMPHOCYTES PERCENT AUTO 34 % (21-46); MONOCYTES ABSOLUTE AUTO 0.57 K/mm3 (0.16-1.47); MONOCYTES PERCENT AUTO 9 % (4-13); Mean Corpuscular HGB 30.2 pg (26.0-34.0); Mean Corpuscular HGB Conc 34.3 g/dL (31.5-36.5); Mean Corpuscular Volume 88 fL (80-100); Mean Platelet Volume 10.5 fL (9.1-12.4); NEUTROPHILS ABSOLUTE AUTO 3.19 K/mm3 (1.96-9.15); NEUTROPHILS PERCENT AUTO 52 % (41-73); Platelet Count 280 K/mm3 (150-400); RDW Coefficient Variation 12.4 % (11.7-14.2); RDW Standard Deviation 39.8 fL (35.1-46.3); Red Blood Cell Count 4.54 M/mm3 (3.80-5.20); White Blood Cell Count 6.11 K/mm3 (4.00-11.30)
--- NOTE | 2024-06-26 06:47 | NUR ---
SHIFT SUMMARY. PROVIDED PT WITH PAIN MEDICATION TO FOR LOWER BACK CONSISTENTLY THROUGH SHIFT. APPROX 0600, PT BEGAN DESATING TO 60'S, THEN TO 58. DR. JENKINS ORDERED CHEST XRAY THIS AM. WILL RELAY TO DAY SHIFT.
[2024-06-26 06:49] LABS: Bun/Creatinine Ratio 9.3 (12.0-20.0); Calcium, Blood 9.2 mg/dL (8.5-10.1); Creatinine, Blood 1.18 mg/dL (0.40-1.00); Potassium, Blood 3.9 mmol/L (3.5-5.5)
[2024-06-26 08:15] VITALS: BP 118/84
[2024-06-26] MEDS ORDERED: Lactated Ringer's 1,000 ML IV SCH (08:20)
[2024-06-26] MEDS ORDERED: FentaNYL Citrate 50 MCG/ML 2 ML Injection IV PRN (10:15)
[2024-06-26] MEDS ORDERED: HyDROXyzine HCl 25 MG Tab PO PRN (10:15)
[2024-06-26] MEDS ORDERED: Methylprednisolone 4 MG Tab PO ONE (13:00)
[2024-06-26 14:37] VITALS: BP 94/68
--- NOTE | 2024-06-26 17:12 | NUR ---
PT AOX4 AND COOPERATIVE OF CARE. PT HAS BEEN DOING BETTER TODAY. ANXIETY MEDICATION WAS ADDED TO EMAR AND SEEMS TO BE EFFECTIVE AT THIS TIME. PT HAS BEEN STAYING WITH ORAL PAIN MED PER EMAR AND SO FAR HAS BEEN DOING WELL, PT IS ABLE TO MAKE NEEDS KNOWN AND IS INDEPENDENT IN ROOM. CALL LIGHT IS IN REACH WILL CONINTUE TO MONITOR.
[2024-06-26 20:05] VITALS: BP 94/56
[2024-06-27 02:49] VITALS: BP 104/70
--- NOTE | 2024-06-27 03:40 | NUR ---
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 ALERT AND ORIENTED, SOMEWHAT HARD OF HEARING. O2 AT 2L/MIN PER NC. UP AD PEDRO WITH OBSERVATION FOR SAFETY. VOICED NAUSEA AT HS, RECEIVED ZOFRAN AND NO FURTHER C/O NAUSEA OF THIS WRITING. ABLE TO REPOSITION SELF IN BED WITHOUT ASSIST FOR COMFORT. HAS BEEN RESETING QUIETLY WITH FEW INTERRUPTOINS. CALL LIGHT IN REACH, RAILS UP X 2 AND BED IN LOW POSITOIN FOR SAFETY. WILL CONTINUE TO MONITOR.
[2024-06-27 07:20] VITALS: BP 117/76
[2024-06-27 07:21] LABS: BASOPHILS ABSOLUTE AUTO 0.01 K/mm3 (0.00-0.23); BASOPHILS PERCENT AUTO 0 % (0-2); EOSINOPHILS ABSOLUTE AUTO 0.02 K/mm3 (0.00-0.68); EOSINOPHILS PERCENT AUTO 0 % (0-6); Hematocrit 37.3 % (33.0-51.0); Hemoglobin 12.7 g/dL (11.5-16.0); IMMATURE GRAN ABSOLUTE AUTO 0.02 K/mm3 (0.00-0.10); IMMATURE GRAN PERCENT AUTO 0 % (0-1); LYMPHOCYTES ABSOLUTE AUTO 1.74 K/mm3 (0.84-5.20); LYMPHOCYTES PERCENT AUTO 18 % (21-46); MONOCYTES ABSOLUTE AUTO 0.54 K/mm3 (0.16-1.47); MONOCYTES PERCENT AUTO 6 % (4-13); Mean Corpuscular Volume 88 fL (80-100); Mean Platelet Volume 10.7 fL (9.1-12.4); NEUTROPHILS ABSOLUTE AUTO 7.49 K/mm3 (1.96-9.15); NEUTROPHILS PERCENT AUTO 76 % (41-73); Platelet Count 268 K/mm3 (150-400); RDW Coefficient Variation 12.4 % (11.7-14.2); RDW Standard Deviation 39.4 fL (35.1-46.3); Red Blood Cell Count 4.23 M/mm3 (3.80-5.20); White Blood Cell Count 9.82 K/mm3 (4.00-11.30)
[2024-06-27 07:36] LABS: Bun/Creatinine Ratio 14.5 (12.0-20.0); Calcium, Blood 8.7 mg/dL (8.5-10.1); Creatinine, Blood 0.83 mg/dL (0.40-1.00); Potassium, Blood 3.7 mmol/L (3.5-5.5)
[2024-06-27] MEDS ORDERED: Magnesium Citrate 300 ML BTL PO ONE (10:45)
[2024-06-27] MEDS ORDERED: Sod Phosphate/Sod Biphosphate 132 ML BTL PR PRN (10:45)
[2024-06-27] MEDS ORDERED: Methylprednisolone 4 MG Tab PO SCH (12:00)
[2024-06-27] MEDS ORDERED: Methylprednisolone 4 MG Tab PO ONE (14:20)
[2024-06-27] MEDS ORDERED: CYCL10 PO (16:01)
[2024-06-27] MEDS ORDERED: Percocet 10-321 EACH PO (16:02)
[2024-06-27] MEDS ORDERED: HYDHCL25 PO (16:02)
[2024-06-27] MEDS ORDERED: METPRE4 PO (16:04)
[2024-06-27 16:32] VITALS: BP 104/80
--- NOTE | 2024-06-27 18:35 | NUR ---
DISCHARGE SUMMARY PT DISCHARGED TO HOME. PT LEFT ROOM VIA WHEELCHAIR WITH SPOUSE PRESENT. IV DC'D AND BELONGINGS RETURNED. PT AGREES TO FOLLOW UP WITH PCP AND NEUROSURGERY ORDERED. ALL DISCHARGE INSTRUCTIONS DISCUSSED, ALL QUESTIONS ANSWERED.
[2024-06-28] MEDS ORDERED: Methylprednisolone 4 MG Tab PO SCH (09:00)
[2024-06-29] MEDS ORDERED: Methylprednisolone 4 MG Tab PO SCH (09:00)
[2024-06-30] MEDS ORDERED: Methylprednisolone 4 MG Tab PO ONE (09:00)
[2024-07-01] MEDS ORDERED: Methylprednisolone 4 MG Tab PO ONE (09:00)
== END 2024-06-27 17:02 | disposition home or self-care (01) | DRG 552 ==
LOC: ER 16:26 → MEDS 16:27 → ER 21:55 → MEDS 06-22 00:20
PROVIDERS: Student in an Organized Health Care Education/Training Program; ADMIT Internal Medicine
DX: M51.370 Other intervertebral disc degeneration, lumbosacral region with discogenic back pain only (principal); Q85.82 Other Cowden syndrome; F41.9 Anxiety disorder, unspecified; K21.9 Gastro-esophageal reflux disease without esophagitis; E89.0 Postprocedural hypothyroidism; G47.00 Insomnia, unspecified; R42 Dizziness and giddiness; R32 Unspecified urinary incontinence; R30.0 Dysuria; G89.29 Other chronic pain; Z79.890 Hormone replacement therapy; Z79.899 Other long term (current) drug therapy; Z85.43 Personal history of malignant neoplasm of ovary; Z88.0 Allergy status to penicillin; Z88.2 Allergy status to sulfonamides; Z88.1 Allergy status to other antibiotic agents; Z88.8 Allergy status to other drugs, medicaments and biological substances; Z90.710 Acquired absence of both cervix and uterus; Z90.49 Acquired absence of other specified parts of digestive tract
CPT/HCPCS: 36415; 70551; 71046; 72131; 72141; 72157; 76770; 80048; 80053; 81001; 83880; 84439; 84443; 85025; 85651; 87086; 94762; 96374; 96375; 96376; 97162; 97530; 99284-25; A9270; A9579; G0378; J1171; J1650; J1885; J2060; J2405; J3010; J7120; J7509

== ENCOUNTER → 2024-11-17 | Outpatient (CLI) | payer OTHER ==
[~2024-11-17] MED LIST changes: +ESZO3 PO; +HYDHCL25 PO; +LEVSOD150 PO; +METPRE4 PO; +NEURONTIN300 MG PO; +Oxybutynin Chlo10 MG PO
[2024-11-17 20:14] LABS: Thyroid Stimulating Hormone 14.2 uIU/mL (0.360-4.800)
== END ==
LOC: LAB SHORT 17:27 → LAB 17:27
PROVIDERS: Hospitalist
DX: E03.9 Hypothyroidism, unspecified (principal)
CPT/HCPCS: 84439; 84443

== ENCOUNTER 2024-12-27 15:45 | Emergency (ER) | payer OTHER ==
[~2024-12-27] VITALS: Ht 170.2 cm; Wt 82.1 kg
[~2024-12-27 15:45] MED LIST changes: -LEVFLO500 PO; -OXYC5 PO
[2024-12-27 16:17] LABS: Source, Urine Clean Catch
[2024-12-27 16:23] LABS: Bilirubin, Urine Neg (Neg); Color, Urine Yellow (P-Yellow); Glucose Qualitative, Urine Neg (Neg); Ketones, Urine Neg (Neg); Leukocyte Esterase, Urine 3+ (Neg); Protein, Urine 1+ (Neg); Specific Gravity, Urine 1.015 (1.003-1.022); Urobilinogen, Urine NORM (Normal)
[2024-12-27 16:33] LABS: Red Blood Cells, Urine 0-2 /hpf (0-2)
[2024-12-27] MEDS ORDERED: Ketorolac Tromethamine 15mg Vial IV ONE (16:45)
[2024-12-27] MEDS ORDERED: HYDROcodone 5-APAP 325 TAB PO ONE (16:50)
[2024-12-27] MEDS ORDERED: Ondansetron HCl 2 MG / ML 2ML Vial IV ONE (18:40)
[2024-12-27] MEDS ORDERED: HYDROmorphone HCl/Pf 1MG SYR IV ONE (18:40)
[2024-12-27 18:53] LABS: BASOPHILS ABSOLUTE AUTO 0.04 K/mm3 (0.00-0.23); BASOPHILS PERCENT AUTO 0 % (0-2); EOSINOPHILS ABSOLUTE AUTO 0.11 K/mm3 (0.00-0.68); EOSINOPHILS PERCENT AUTO 1 % (0-6); Hematocrit 36.3 % (33.0-51.0); Hemoglobin 12.4 g/dL (11.5-16.0); IMMATURE GRAN ABSOLUTE AUTO 0.03 K/mm3 (0.00-0.10); IMMATURE GRAN PERCENT AUTO 0 % (0-1); LYMPHOCYTES ABSOLUTE AUTO 3.15 K/mm3 (0.84-5.20); LYMPHOCYTES PERCENT AUTO 35 % (21-46); MONOCYTES ABSOLUTE AUTO 0.58 K/mm3 (0.16-1.47); MONOCYTES PERCENT AUTO 7 % (4-13); Mean Corpuscular HGB Conc 34.2 g/dL (31.5-36.5); Mean Corpuscular Volume 90 fL (80-100); NEUTROPHILS ABSOLUTE AUTO 5.07 K/mm3 (1.96-9.15); NEUTROPHILS PERCENT AUTO 57 % (41-73); NRBC ABSOLUTE 0.00 K/mm3 (0.00-0.02); NRBC Auto 0.0 /100 WBC (0.0-0.2); Platelet Count 322 K/mm3 (150-400); RDW Coefficient Variation 13.3 % (11.7-14.2); RDW Standard Deviation 44.5 fL (35.1-46.3)
[2024-12-27] MEDS ORDERED: LEVFLO500 PO (19:18)
[2024-12-27] MEDS ORDERED: PROM25 PO (19:18)
[2024-12-27] MEDS ORDERED: OXYC5 PO (19:19)
[2024-12-27] MEDS ORDERED: LevoFLOXacin 750 MG/D5W 150ML 150 ML IV ONE (19:20)
[2024-12-27 19:35] LABS: Alanine Aminotransfer (ALT/SGP 21.0 U/L (12-78); Albumin, Blood 3.7 g/dL (3.4-5.0); Albumin/Globulin Ratio 1.0 (0.8-1.8); Anion Gap 13.0 mmol/L (3-11); Aspartate Aminotrans (AST/SGOT 24.0 U/L (12-37); Bilirubin, Total 0.4 mg/dL (0.1-1.0); Blood Urea Nitrogen 12.0 mg/dL (8-24); CO2, Blood 16.0 mmol/L (21-32); Calcium, Blood 8.7 mg/dL (8.5-10.1); Chloride, Blood 109.0 mmol/L (98-108); Creatinine, Blood 0.88 mg/dL (0.40-1.00); Globulin, Blood 3.8 g/dL (2.2-4.0); Glucose, Blood 94.0 mg/dL (70-99); Potassium, Blood 3.5 mmol/L (3.5-5.5); Sodium, Blood 134.0 mmol/L (136-145); Total Protein, Blood 7.5 g/dL (6.4-8.2)
[2024-12-27 21:00] VITALS: BP 111/87
== END 2024-12-27 21:20 | disposition home or self-care (01) ==
LOC: ER 15:45
PROVIDERS: Emergency Medicine; Student in an Organized Health Care Education/Training Program
DX: N12 Tubulo-interstitial nephritis, not specified as acute or chronic (principal)
CPT/HCPCS: 74177; 80053; 81001; 85025; 85651; A9270; J1171; J1885; J1956; J2405; Q9967

== ENCOUNTER → 2024-12-27 | Outpatient (CLI) | payer OTHER ==
[~2024-12-27] MED LIST changes: +LEVFLO500 PO; +OXYC5 PO
[2024-12-27 14:48] LABS: BASOPHILS ABSOLUTE AUTO 0.04 K/mm3 (0.00-0.23); BASOPHILS PERCENT AUTO 1 % (0-2); EOSINOPHILS ABSOLUTE AUTO 0.10 K/mm3 (0.00-0.68); EOSINOPHILS PERCENT AUTO 1 % (0-6); Hematocrit 38.5 % (33.0-51.0); Hemoglobin 13.3 g/dL (11.5-16.0); IMMATURE GRAN ABSOLUTE AUTO 0.02 K/mm3 (0.00-0.10); IMMATURE GRAN PERCENT AUTO 0 % (0-1); LYMPHOCYTES ABSOLUTE AUTO 2.42 K/mm3 (0.84-5.20); LYMPHOCYTES PERCENT AUTO 30 % (21-46); MONOCYTES ABSOLUTE AUTO 0.50 K/mm3 (0.16-1.47); MONOCYTES PERCENT AUTO 6 % (4-13); Mean Corpuscular HGB Conc 34.5 g/dL (31.5-36.5); Mean Corpuscular Volume 90 fL (80-100); NEUTROPHILS ABSOLUTE AUTO 4.92 K/mm3 (1.96-9.15); NEUTROPHILS PERCENT AUTO 61 % (41-73); NRBC ABSOLUTE 0.00 K/mm3 (0.00-0.02); NRBC Auto 0.0 /100 WBC (0.0-0.2); Platelet Count 324 K/mm3 (150-400); RDW Coefficient Variation 13.7 % (11.7-14.2); RDW Standard Deviation 44.4 fL (35.1-46.3)
[2024-12-27 15:14] LABS: Alanine Aminotransfer (ALT/SGP 27.0 U/L (12-78); Albumin, Blood 3.9 g/dL (3.4-5.0); Albumin/Globulin Ratio 1.1 (0.8-1.8); Anion Gap 14.0 mmol/L (3-11); Aspartate Aminotrans (AST/SGOT 18.0 U/L (12-37); Bilirubin, Total 0.3 mg/dL (0.1-1.0); Blood Urea Nitrogen 13.0 mg/dL (8-24); CO2, Blood 22.0 mmol/L (21-32); Calcium, Blood 8.9 mg/dL (8.5-10.1); Chloride, Blood 103.0 mmol/L (98-108); Creatinine, Blood 0.99 mg/dL (0.40-1.00); Globulin, Blood 3.7 g/dL (2.2-4.0); Glucose, Blood 99.0 mg/dL (70-99); Potassium, Blood 3.6 mmol/L (3.5-5.5); Sodium, Blood 135.0 mmol/L (136-145); Total Protein, Blood 7.6 g/dL (6.4-8.2)
== END ==
LOC: LAB SHORT 14:45 → LAB 14:45
PROVIDERS: Family Medicine
DX: R10.9 Unspecified abdominal pain (principal)
CPT/HCPCS: 80053; 83690; 85025

== ENCOUNTER → 2025-02-17 | Outpatient (CLI) | payer OTHER ==
[~2025-02-17] MED LIST changes: +Flagyl500 MG PO; +LEVFLO500 PO; +OXYC5 PO
[2025-02-17 19:20] LABS: BASOPHILS ABSOLUTE AUTO 0.02 K/mm3 (0.00-0.23); BASOPHILS PERCENT AUTO 0 % (0-2); EOSINOPHILS ABSOLUTE AUTO 0.16 K/mm3 (0.00-0.68); EOSINOPHILS PERCENT AUTO 3 % (0-6); Hematocrit 36.4 % (33.0-51.0); Hemoglobin 12.5 g/dL (11.5-16.0); IMMATURE GRAN ABSOLUTE AUTO 0.01 K/mm3 (0.00-0.10); IMMATURE GRAN PERCENT AUTO 0 % (0-1); LYMPHOCYTES ABSOLUTE AUTO 2.16 K/mm3 (0.84-5.20); LYMPHOCYTES PERCENT AUTO 34 % (21-46); MONOCYTES ABSOLUTE AUTO 0.42 K/mm3 (0.16-1.47); MONOCYTES PERCENT AUTO 7 % (4-13); Mean Corpuscular HGB Conc 34.3 g/dL (31.5-36.5); Mean Corpuscular Volume 90 fL (80-100); NEUTROPHILS ABSOLUTE AUTO 3.66 K/mm3 (1.96-9.15); NEUTROPHILS PERCENT AUTO 57 % (41-73); NRBC ABSOLUTE 0.00 K/mm3 (0.00-0.02); NRBC Auto 0.0 /100 WBC (0.0-0.2); Platelet Count 292 K/mm3 (150-400); RDW Coefficient Variation 12.5 % (11.7-14.2); RDW Standard Deviation 40.9 fL (35.1-46.3)
[2025-02-17 21:15] LABS: Anion Gap 13.0 mmol/L (3-11); Blood Urea Nitrogen 13.0 mg/dL (8-24); CO2, Blood 22.0 mmol/L (21-32); Calcium, Blood 9.4 mg/dL (8.5-10.1); Chloride, Blood 106.0 mmol/L (98-108); Creatinine, Blood 0.8 mg/dL (0.40-1.00); Glucose, Blood 94.0 mg/dL (70-99); Magnesium, Blood 2.4 mg/dL (1.6-2.4); Potassium, Blood 3.7 mmol/L (3.5-5.5); Sodium, Blood 137.0 mmol/L (136-145); Thyroid Stimulating Hormone 0.23 uIU/mL (0.360-4.800)
== END ==
LOC: LAB 18:48 → LAB SHORT 18:48
PROVIDERS: Hospitalist
DX: E03.9 Hypothyroidism, unspecified (principal); M62.838 Other muscle spasm
CPT/HCPCS: 80048; 83735; 84439; 84443; 85025

== ENCOUNTER 2025-03-26 20:31 | Observation (INO) | payer OTHER ==
[~2025-03-26] VITALS: Ht 172.7 cm; Wt 82.7 kg
[2025-03-26] MEDS ORDERED: Ondansetron HCl 2 MG / ML 2ML Vial IV ONE (21:00)
[2025-03-26] MEDS ORDERED: HYDROmorphone HCl/Pf 1MG SYR IV ONE ×3 (21:00→23:30)
[2025-03-26] MEDS ORDERED: NS 1,000 ML IV SCH ×2 (21:00→23:50)
[2025-03-26 21:23] LABS: Alanine Aminotransfer (ALT/SGP 56.0 U/L (12-78); Albumin, Blood 3.9 g/dL (3.4-5.0); Albumin/Globulin Ratio 0.9 (0.8-1.8); Anion Gap 10.0 mmol/L (3-11); Aspartate Aminotrans (AST/SGOT 38.0 U/L (12-37); Bilirubin, Total 0.5 mg/dL (0.1-1.0); Blood Urea Nitrogen 10.0 mg/dL (8-24); CO2, Blood 23.0 mmol/L (21-32); Calcium, Blood 9.3 mg/dL (8.5-10.1); Chloride, Blood 107.0 mmol/L (98-108); Creatinine, Blood 0.8 mg/dL (0.40-1.00); Globulin, Blood 4.3 g/dL (2.2-4.0); Glucose, Blood 113.0 mg/dL (70-99); Potassium, Blood 3.2 mmol/L (3.5-5.5); Sodium, Blood 137.0 mmol/L (136-145); Total Protein, Blood 8.2 g/dL (6.4-8.2)
[2025-03-26 21:40] LABS: BASOPHILS ABSOLUTE AUTO 0.05 K/mm3 (0.00-0.23); BASOPHILS PERCENT AUTO 1 % (0-2); EOSINOPHILS ABSOLUTE AUTO 0.27 K/mm3 (0.00-0.68); EOSINOPHILS PERCENT AUTO 3 % (0-6); Hematocrit 40.3 % (33.0-51.0); Hemoglobin 14.0 g/dL (11.5-16.0); IMMATURE GRAN ABSOLUTE AUTO 0.05 K/mm3 (0.00-0.10); IMMATURE GRAN PERCENT AUTO 1 % (0-1); LYMPHOCYTES ABSOLUTE AUTO 3.77 K/mm3 (0.84-5.20); LYMPHOCYTES PERCENT AUTO 35 % (21-46); MONOCYTES ABSOLUTE AUTO 0.89 K/mm3 (0.16-1.47); MONOCYTES PERCENT AUTO 8 % (4-13); Mean Corpuscular HGB Conc 34.7 g/dL (31.5-36.5); Mean Corpuscular Volume 89 fL (80-100); NEUTROPHILS ABSOLUTE AUTO 5.74 K/mm3 (1.96-9.15); NEUTROPHILS PERCENT AUTO 53 % (41-73); NRBC ABSOLUTE 0.00 K/mm3 (0.00-0.02); NRBC Auto 0.0 /100 WBC (0.0-0.2); Platelet Count 382 K/mm3 (150-400); RDW Coefficient Variation 11.9 % (11.7-14.2); RDW Standard Deviation 37.7 fL (35.1-46.3)
[2025-03-26 22:18] LABS: Source, Urine Clean Catch
[2025-03-26 22:31] LABS: Bilirubin, Urine Neg (Neg); Glucose Qualitative, Urine Neg (Neg); Ketones, Urine Neg (Neg); Leukocyte Esterase, Urine 3+ (Neg); Protein, Urine Neg (Neg); Specific Gravity, Urine 1.015 (1.003-1.022); Urobilinogen, Urine NORM (Normal)
[2025-03-26 22:46] LABS: Color, Urine Yellow (P-Yellow)
[2025-03-26 22:47] LABS: Red Blood Cells, Urine 0-2 /hpf (0-2)
[2025-03-27] VITALS (7 sets, daily range): BP systolic 89–122; BP diastolic 57–101
[2025-03-27] MEDS ORDERED: CefTRIAXone Sodium 1,000 MG in NS 50 ML IV ONE (00:05)
[2025-03-27] MEDS ORDERED: Ondansetron HCl 2 MG / ML 2ML Vial IV PRN (00:45)
[2025-03-27] MEDS ORDERED: HYDROmorphone HCl/Pf 1MG SYR IV PRN (00:50)
[2025-03-27] MEDS ORDERED: Naloxone HCl 0.4MG / ML 1ML Vial IV PRN (00:50)
[2025-03-27] MEDS ORDERED: HYDROcodone 5-APAP 325 TAB PO PRN (00:50)
[2025-03-27] MEDS ORDERED: FLU VACC TS2025-26(6MOS UP)/PF 45 MCG/0.5 ML SYRINGE IM ONE (00:50)
[2025-03-27] MEDS ORDERED: HYDROmorphone HCl/Pf 1MG SYR IV ONE (04:45)
[2025-03-27] MEDS ORDERED: Ondansetron HCl 2 MG / ML 2ML Vial IV ONE (04:45)
[2025-03-27 05:04] LABS: BASOPHILS ABSOLUTE AUTO 0.03 K/mm3 (0.00-0.23); BASOPHILS PERCENT AUTO 0 % (0-2); EOSINOPHILS ABSOLUTE AUTO 0.25 K/mm3 (0.00-0.68); EOSINOPHILS PERCENT AUTO 3 % (0-6); Hematocrit 31.3 % (33.0-51.0); Hemoglobin 10.8 g/dL (11.5-16.0); IMMATURE GRAN ABSOLUTE AUTO 0.03 K/mm3 (0.00-0.10); IMMATURE GRAN PERCENT AUTO 0 % (0-1); LYMPHOCYTES ABSOLUTE AUTO 2.74 K/mm3 (0.84-5.20); LYMPHOCYTES PERCENT AUTO 33 % (21-46); MONOCYTES ABSOLUTE AUTO 0.80 K/mm3 (0.16-1.47); MONOCYTES PERCENT AUTO 10 % (4-13); Mean Corpuscular HGB Conc 34.5 g/dL (31.5-36.5); Mean Corpuscular Volume 86 fL (80-100); NEUTROPHILS ABSOLUTE AUTO 4.36 K/mm3 (1.96-9.15); NEUTROPHILS PERCENT AUTO 53 % (41-73); NRBC ABSOLUTE 0.00 K/mm3 (0.00-0.02); NRBC Auto 0.0 /100 WBC (0.0-0.2); Platelet Count 277 K/mm3 (150-400); RDW Coefficient Variation 11.9 % (11.7-14.2); RDW Standard Deviation 37.7 fL (35.1-46.3)
[2025-03-27 05:40] LABS: Magnesium, Blood 2.0 mg/dL (1.6-2.4)
[2025-03-27 05:51] LABS: Alanine Aminotransfer (ALT/SGP 38.0 U/L (12-78); Albumin, Blood 2.8 g/dL (3.4-5.0); Albumin/Globulin Ratio 0.9 (0.8-1.8); Anion Gap 10.0 mmol/L (3-11); Aspartate Aminotrans (AST/SGOT 26.0 U/L (12-37); Bilirubin, Total 0.4 mg/dL (0.1-1.0); Blood Urea Nitrogen 9.0 mg/dL (8-24); CO2, Blood 18.0 mmol/L (21-32); Calcium, Blood 7.9 mg/dL (8.5-10.1); Chloride, Blood 115.0 mmol/L (98-108); Creatinine, Blood 0.8 mg/dL (0.40-1.00); Globulin, Blood 3.2 g/dL (2.2-4.0); Glucose, Blood 97.0 mg/dL (70-99); Potassium, Blood 3.3 mmol/L (3.5-5.5); Sodium, Blood 140.0 mmol/L (136-145)
[2025-03-27 05:52] LABS: Total Protein, Blood 6.0 g/dL (6.4-8.2)
--- NOTE | 2025-03-27 06:04 | NUR ---
ADMIT NOTE/MEDICAL RECORDS SPECIALIST SUMMARY PT ADMITTED FROM ED TODAY FOR INTRACTABLE PAIN. PT A&OX4, VSS. ABLE TO EXPRESS NEEDS EFFECTIVELY. ORIENTED TO ROOM, CALL LIGHT, FALL AND SAFETY PRECAUTIONS. PT HAS BEEN ASLEEP ON AND OFF THIS SHIFT SINCE ARRIVAL ONTO UNIT. CHEST RISE/RESPIRATIONS NOTED. DILAUDID AND ZOFRAN ADMIN X 2 EACH W/ MODERATE, BUT SHORT LASTING EFFECT. ON CONT PULSE OX AND RA, SATS >=94%. BED RAILS UP X 2, BED IN LOWEST POSITION, BED WHEELS LOCKED, PERSONAL BELONGINGS AND CALL LIGHT WITHIN REACH FOR SAFETY.
--- NOTE | 2025-03-27 08:10 | NUR ---
OYSTER GRADER SUMMARY PT A&OX4, VSS. ABLE TO COMMUNICATE NEEDS EFFECTIVELY. PT HAD STENT PLACEMENT PROCEDURE TODAY. VSS SINCE RETURN. HAS BEEN ASLEEP FOR MOST OF THE SHIFT SINCE RETURN FROM PROCEDURE. CHEST RISE/RESPIRATIONS NOTED. PT DENIES ANY PAIN SINCE PROCEDURE. ON 2L NC SINCE RETURN W/ O2 SATS >=92% ON SPOT CHECKS. BED RAILS UP X 2, BED IN LOWEST POSITION, BED WHEELS LOCKED, PERSONAL BELONGINGS AND CALL LIGHT WITHIN REACH FOR SAFETY.
[2025-03-27] MEDS ORDERED: Lactobacil 2-S.Thermo-Bifido 1 1 Cap PO SCH (09:00)
[2025-03-27] MEDS ORDERED: Enoxaparin 40 MG/0.4 ML SYR SC SCH (09:00)
[2025-03-27] MEDS ORDERED: OxyCODONE 5 mg/Acetamin 325 mg TABLET PO PRN (12:15)
[2025-03-27] MEDS ORDERED: NS 250 ML IV PRN (17:35)
--- NOTE | 2025-03-27 18:23 | NUR ---
SHIFT SUMMARY PT A&OX4, VSS, RA, CONT PULSE OX FOR HIGH NARCOTIC USE. PT STATES PAIN SOMEWHAT DECREASING WITH ORAL PAIN MEDICATIONS, IV DILAUDED REQUIRED Q3 WELL. NAUSEA MANAGED WITH PRN ZOFRAN. PT SBA TO BATHROOM FOR SAFETY, D/T SYNCOPE IN ED LAST NIGHT. PT DECLINED ALL MEALS, DRINKING WATER AND STARRY. PT PLEASANT AND COOPERATIVE WITH CARES, CALL LIGHT IN REACH.
[2025-03-27] MEDS ORDERED: CefTRIAXone Sodium 1,000 MG in NS 100 ML IV SCH (21:00)
[2025-03-28 03:48] VITALS: BP 112/79
[2025-03-28 05:14] LABS: Anion Gap 11.0 mmol/L (3-11); Blood Urea Nitrogen 5.0 mg/dL (8-24); CO2, Blood 21.0 mmol/L (21-32); Calcium, Blood 8.5 mg/dL (8.5-10.1); Chloride, Blood 112.0 mmol/L (98-108); Creatinine, Blood 0.83 mg/dL (0.40-1.00); Glucose, Blood 107.0 mg/dL (70-99); Potassium, Blood 3.6 mmol/L (3.5-5.5); Sodium, Blood 140.0 mmol/L (136-145)
[2025-03-28 07:41] VITALS: BP 122/83
[2025-03-28] MEDS ORDERED: Magnesium Citrate 300 ML BTL PO ONE (10:00)
--- NOTE | 2025-03-28 11:04 | NUR ---
called to room by pt. pt crying loudly and states she has to be discharged today because her ex has the children in [place] and he isnt willing to take care of them past this afternoon. contacted dr acosta and discussed patients request for discharge. dr acosta to place discharge orders. discussed with patient
[2025-03-28] MEDS ORDERED: Calcium Carbon500 MG PO (11:37)
[2025-03-28] MEDS ORDERED: DOCU100 PO (11:38)
[2025-03-28] MEDS ORDERED: METO10 PO (11:38)
[2025-03-28] MEDS ORDERED: OXYC5 PO (11:39)
== END 2025-03-28 11:46 | disposition home or self-care (01) ==
LOC: ER 20:31 → ERHOLD 20:32 → MEDS 03-27 02:25
PROVIDERS: Emergency Medicine; Internal Medicine; ADMIT Student in an Organized Health Care Education/Training Program
DX: R10.31 Right lower quadrant pain (principal); E89.0 Postprocedural hypothyroidism; G89.29 Other chronic pain; M54.50 Low back pain, unspecified; Q85.82 Other Cowden syndrome; R59.0 Localized enlarged lymph nodes; R55 Syncope and collapse; R11.0 Nausea; R82.90 Unspecified abnormal findings in urine; F17.290 Nicotine dependence, other tobacco product, uncomplicated; E87.6 Hypokalemia; K21.9 Gastro-esophageal reflux disease without esophagitis; Z85.43 Personal history of malignant neoplasm of ovary; Z79.890 Hormone replacement therapy; Z79.899 Other long term (current) drug therapy; Z88.0 Allergy status to penicillin; Z88.1 Allergy status to other antibiotic agents; Z88.2 Allergy status to sulfonamides; Z88.5 Allergy status to narcotic agent; Z88.8 Allergy status to other drugs, medicaments and biological substances; Z90.13 Acquired absence of bilateral breasts and nipples; Z90.5 Acquired absence of kidney; Z90.710 Acquired absence of both cervix and uterus; Z90.721 Acquired absence of ovaries, unilateral; Z90.89 Acquired absence of other organs; Z98.890 Other specified postprocedural states
CPT/HCPCS: 36415; 74177; 80048; 80053; 81001; 83690; 83735; 84703; 85025; 87086; 93005; 93010; 94762; 96361; 96365; 96372; 96375; 96376; 99285-25; A9270; G0378; J0696; J1171; J1650; J2405; J7030; J7050; J7120; Q9967

== ENCOUNTER → 2025-03-29 | Outpatient (CLI) | payer OTHER ==
[~2025-03-29] MED LIST changes: +Calcium Carbon500 MG PO; +METO10 PO
[2025-03-29 14:17] LABS: BASOPHILS ABSOLUTE AUTO 0.04 K/mm3 (0.00-0.23); BASOPHILS PERCENT AUTO 1 % (0-2); EOSINOPHILS ABSOLUTE AUTO 0.21 K/mm3 (0.00-0.68); EOSINOPHILS PERCENT AUTO 4 % (0-6); Hematocrit 39.2 % (33.0-51.0); Hemoglobin 13.4 g/dL (11.5-16.0); IMMATURE GRAN ABSOLUTE AUTO 0.02 K/mm3 (0.00-0.10); IMMATURE GRAN PERCENT AUTO 0 % (0-1); LYMPHOCYTES ABSOLUTE AUTO 1.88 K/mm3 (0.84-5.20); LYMPHOCYTES PERCENT AUTO 31 % (21-46); MONOCYTES ABSOLUTE AUTO 0.49 K/mm3 (0.16-1.47); MONOCYTES PERCENT AUTO 8 % (4-13); Mean Corpuscular HGB Conc 34.2 g/dL (31.5-36.5); Mean Corpuscular Volume 87 fL (80-100); NEUTROPHILS ABSOLUTE AUTO 3.42 K/mm3 (1.96-9.15); NEUTROPHILS PERCENT AUTO 56 % (41-73); NRBC ABSOLUTE 0.00 K/mm3 (0.00-0.02); NRBC Auto 0.0 /100 WBC (0.0-0.2); Platelet Count 437 K/mm3 (150-400); RDW Coefficient Variation 11.9 % (11.7-14.2); RDW Standard Deviation 38.2 fL (35.1-46.3)
[2025-03-29 14:36] LABS: Carcinoembryonic Antigen 0.8 ng/mL (0.0-3.0)
== END ==
LOC: LAB SHORT 11:55 → LAB 11:55
PROVIDERS: Hospitalist
DX: Q85.81 PTEN hamartoma tumor syndrome (principal); R10.31 Right lower quadrant pain
CPT/HCPCS: 82378; 83615; 85025; 86304

== ENCOUNTER 2025-04-28 06:11 | Day surgery (SDC) | payer OTHER ==
[~2025-04-28] VITALS: Ht 172.7 cm; Wt 79.5 kg
[2025-04-28] MEDS ORDERED: MIRALAX17 GM PO (06:48)
[2025-04-28] MEDS ORDERED: CENTRUM SILVER1 EAC2 PO (06:48)
[2025-04-28] MEDS ORDERED: Midazolam HCL 1 MG/ML 5MLVIAL ONE (08:17)
[2025-04-28 09:59] VITALS: BP 116/88
[2025-04-29] MEDS ORDERED: Bentyl10 MG PO (11:55)
[2025-04-29] MEDS ORDERED: ONDA4ODT MM (11:55)
== END 2025-04-28 10:03 | disposition home or self-care (01) ==
LOC: ORSCSDS 06:11
PROVIDERS: Internal Medicine Gastroenterology
PROC: 0DB68ZX Excision of Stomach, Via Natural or Artificial Opening Endoscopic, Diagnostic (ICD-10-PCS; principal; 2025-04-28 08:00)
PROC: 0DBN8ZX Excision of Sigmoid Colon, Via Natural or Artificial Opening Endoscopic, Diagnostic (ICD-10-PCS; principal; 2025-04-28 08:00)
PROC: 0DB58ZX Excision of Esophagus, Via Natural or Artificial Opening Endoscopic, Diagnostic (ICD-10-PCS; principal; 2025-04-28 08:00)
PROC: 0DBM8ZX Excision of Descending Colon, Via Natural or Artificial Opening Endoscopic, Diagnostic (ICD-10-PCS; principal; 2025-04-28 08:00)
PROC: 0DBK8ZX Excision of Ascending Colon, Via Natural or Artificial Opening Endoscopic, Diagnostic (ICD-10-PCS; principal; 2025-04-28 08:00)
DX: Q85.81 PTEN hamartoma tumor syndrome (principal); K21.9 Gastro-esophageal reflux disease without esophagitis; K29.00 Acute gastritis without bleeding; Z86.0101 Personal history of adenomatous and serrated colon polyps; F41.9 Anxiety disorder, unspecified; E06.3 Autoimmune thyroiditis; Z79.899 Other long term (current) drug therapy
CPT/HCPCS: 88305; 88342; J2250; J2704; J7120

== ENCOUNTER 2025-04-28 15:05 | Observation (INO) | payer OTHER ==
[~2025-04-28] VITALS: Ht 170.2 cm; Wt 80.0 kg
[~2025-04-28 15:05] MED LIST changes: +CENTRUM SILVER1 EAC2 PO; +MIRALAX17 GM PO
[2025-04-28] MEDS ORDERED: Pantoprazole Sodium 40 MG Injection IV ONE (15:15)
[2025-04-28] MEDS ORDERED: Ondansetron HCl 2 MG / ML 2ML Vial IV ONE (15:15)
[2025-04-28] MEDS ORDERED: FentaNYL Citrate 50 MCG/ML 2 ML Injection IV ONE (15:15)
[2025-04-28 15:40] LABS: BASOPHILS ABSOLUTE AUTO 0.04 K/mm3 (0.00-0.23); BASOPHILS PERCENT AUTO 0 % (0-2); EOSINOPHILS ABSOLUTE AUTO 0.15 K/mm3 (0.00-0.68); EOSINOPHILS PERCENT AUTO 2 % (0-6); Hematocrit 39.3 % (33.0-51.0); Hemoglobin 13.8 g/dL (11.5-16.0); IMMATURE GRAN ABSOLUTE AUTO 0.04 K/mm3 (0.00-0.10); IMMATURE GRAN PERCENT AUTO 0 % (0-1); LYMPHOCYTES ABSOLUTE AUTO 2.89 K/mm3 (0.84-5.20); LYMPHOCYTES PERCENT AUTO 30 % (21-46); MONOCYTES ABSOLUTE AUTO 0.79 K/mm3 (0.16-1.47); MONOCYTES PERCENT AUTO 8 % (4-13); Mean Corpuscular HGB Conc 35.1 g/dL (31.5-36.5); Mean Corpuscular Volume 85 fL (80-100); NEUTROPHILS ABSOLUTE AUTO 5.61 K/mm3 (1.96-9.15); NEUTROPHILS PERCENT AUTO 59 % (41-73); NRBC ABSOLUTE 0.00 K/mm3 (0.00-0.02); NRBC Auto 0.0 /100 WBC (0.0-0.2); Platelet Count 315 K/mm3 (150-400); RDW Coefficient Variation 12.9 % (11.7-14.2); RDW Standard Deviation 39.7 fL (35.1-46.3)
[2025-04-28 16:00] LABS: Alanine Aminotransfer (ALT/SGP 23.0 U/L (12-78); Albumin, Blood 3.7 g/dL (3.4-5.0); Albumin/Globulin Ratio 1.0 (0.8-1.8); Anion Gap 10.0 mmol/L (3-11); Aspartate Aminotrans (AST/SGOT 16.0 U/L (12-37); Bilirubin, Total 0.3 mg/dL (0.1-1.0); Blood Urea Nitrogen 8.0 mg/dL (8-24); CO2, Blood 18.0 mmol/L (21-32); Calcium, Blood 8.6 mg/dL (8.5-10.1); Chloride, Blood 115.0 mmol/L (98-108); Creatinine, Blood 0.8 mg/dL (0.40-1.00); Globulin, Blood 3.6 g/dL (2.2-4.0); Glucose, Blood 124.0 mg/dL (70-99); Potassium, Blood 3.3 mmol/L (3.5-5.5); Sodium, Blood 140.0 mmol/L (136-145); Total Protein, Blood 7.3 g/dL (6.4-8.2)
[2025-04-28] MEDS ORDERED: NS 1,000 ML IV ONE (16:04)
[2025-04-28] MEDS ORDERED: Potassium Chl 20MEQ/Water100ML 100 ML IV ONE (16:20)
[2025-04-28] MEDS ORDERED: NS 500 ML IV SCH (16:45)
[2025-04-28] MEDS ORDERED: Morphine Sulfate 4 MG/1 ML Injection IV ONE (16:55)
[2025-04-28] MEDS ORDERED: Metoclopramide HCl 5MG / ML 2ML Vial IV PRN (17:45)
[2025-04-28] MEDS ORDERED: FLU VACC TS2025-26(6MOS UP)/PF 45 MCG/0.5 ML SYRINGE IM SCH (17:45)
[2025-04-28] MEDS ORDERED: Ondansetron HCl 2 MG / ML 2ML Vial IV PRN (17:45)
[2025-04-28] MEDS ORDERED: NS 1,000 ML IV SCH ×2 (17:45→20:20)
[2025-04-28] MEDS ORDERED: OxyCODONE 5 mg/Acetamin 325 mg TABLET PO PRN (17:50)
[2025-04-28] MEDS ORDERED: FentaNYL Citrate 50 MCG/ML 2 ML Injection IV PRN ×2 (17:50→21:05)
[2025-04-28] MEDS ORDERED: NS 500 ML IV ONE (18:00)
[2025-04-28 19:50] VITALS: BP 113/78
[2025-04-28 20:11] LABS: Hematocrit 34.9 % (33.0-51.0); Hemoglobin 11.6 g/dL (11.5-16.0)
--- NOTE | 2025-04-28 22:22 | NUR ---
TRANSFER NOTE THIS RN RECEIVED REPORT FROM MARTHA BOWMAN IN THE ER VIA PHONE. PT TRANSFERRED TO PCU. PT WAS ABLE TO AMBULATE FROM [facility] TO BED WITH SBA. REPORTED MILD DIZZINESS WITH MOVEMENT. PT REPORTED RT SIDED ABDOMINAL PAIN THAT "MOVES AROUND" AND FEELS LIKE "CRAMPING". MEDICATED PER EMAR WITH IV MEDICATION. PT REPORTING THAT PO PERCOCET GIVES HER "A HEADACHE", CONTACTED PROVIDER AND CHANGED TO OXYCODONE. MEDICATED PER EMAR. STARTED IV FLUIDS. IV KCL FINISHED INFUSING. BP STABLE. SR ON MONITOR. AFEBRILE. ON RA WITH SPO2 >92%. CONTINENT OF URINE. AMBULATED TO BATHROOM WITH SBA. BED IN LOWEST POSITION AND CALL LIGHT WITHIN REACH.
[2025-04-28 23:14] VITALS: BP 99/69
[2025-04-29 02:08] LABS: Hematocrit 34.6 % (33.0-51.0); Hemoglobin 11.3 g/dL (11.5-16.0)
[2025-04-29 02:19] LABS: Anion Gap 7.0 mmol/L (3-11); Blood Urea Nitrogen 5.0 mg/dL (8-24); CO2, Blood 22.0 mmol/L (21-32); Calcium, Blood 7.5 mg/dL (8.5-10.1); Chloride, Blood 117.0 mmol/L (98-108); Creatinine, Blood 0.84 mg/dL (0.40-1.00); Glucose, Blood 94.0 mg/dL (70-99); Potassium, Blood 4.5 mmol/L (3.5-5.5); Sodium, Blood 141.0 mmol/L (136-145)
[2025-04-29 03:25] VITALS: BP 91/65
[2025-04-29] MEDS ORDERED: NS 1,000 ML IV SCH (04:10)
[2025-04-29] MEDS ORDERED: NS 500 ML IV ONE (04:10)
--- NOTE | 2025-04-29 04:45 | NUR ---
SHIFT SUMMARY SEE PREVIOUS NOTE NEURO UNCHANGED. SBP TRENDING DOWN THIS SHIFT AND NOW IN THE 90S. INTERMITTENT DIZZINESS WITH MOVEMENT. NO S/S OF BLEEDING NOTED. DENIES BM SINCE ARRIVAL TO UNIT. MD YOUNG NOTIFIED OF HGB DROP AND SOFT BP. ORDER FOR 500ML NS BOLUS AND THEN INCREASING MAINTENANCE FLUIDS TO 125MLS/HR OF NS. SR ON MONITOR. AFEBRILE. ON RA WITH SPO2 >92%. MEDICATING PER EMAR FOR PAIN. CALLING APPROPRIATELY. BED IN LOWEST POSITION AND CALL LIGHT WITHIN REACH. THIS RN WILL REPORT TO ONCOMING DAYSHIFT RN.
[2025-04-29 05:05] VITALS: BP 95/78
[2025-04-29] MEDS ORDERED: Levothyroxine Sodium 0.175 MG TAB PO SCH (06:00)
[2025-04-29] MEDS ORDERED: Levothyroxine Sodium 0.15 MG Tab PO SCH (06:00)
[2025-04-29 08:15] VITALS: BP 107/85
[2025-04-29 08:38] LABS: Hematocrit 36.6 % (33.0-51.0); Hemoglobin 11.9 g/dL (11.5-16.0)
--- NOTE | 2025-04-29 08:44 | NUR ---
Pt having abdominal pain, 8/10 this morning. States just had a dark red bowel movement as well. C/O nausea. Given zofran, oxycodone and fentanyl per orders. Pt states relief from nausea and pain decreased to 6/10. STates she feels like eating breakfast.
--- NOTE | 2025-04-29 10:28 | NUR ---
Pt felt urge to have BM but did not; only had smear of blood on toilet paper. Voiding clear yellow urine. C/O cramping abdominal pain and nausea. After lying down with pillow under right flank, pain somewhat relieved. given reglan for nausea per orders.
[2025-04-29] MEDS ORDERED: Bentyl10 MG PO ×2 (11:55)
[2025-04-29] MEDS ORDERED: ONDA4ODT MM ×2 (11:55)
[2025-04-29] MEDS ORDERED: OXYC5 PO (11:55)
--- NOTE | 2025-04-29 12:34 | NUR ---
DISCHARGE UPDATE DISCHARGE PACKET GONE OVER WITH PT AND PT SIGNIFICANT OTHER AT 1220. PT DISCHARGED AT 1235 VIA WHEELCHAIR AND ON RA. PT ABLE TO DRESS HERSELF AND TRANSFER HERSELF TO AND FROM WHEELCHAIR ON HER OWN, TOLERATED WELL. HARDSCRIPT FOR PAIN MED GIVEN TO SIGNIFICANT OTHER PER PT REQUEST. DISCHARGE PACKET WITH PT AT TIME OF DISCHARGE. PT PERSONAL BELONGINGS WITH PT AT TIME OF DISCHARGE.
== END 2025-04-29 12:34 | disposition home or self-care (01) ==
LOC: ER 15:05 → PCU 15:06
PROVIDERS: Emergency Medicine; Nurse Practitioner Acute Care; ADMIT Student in an Organized Health Care Education/Training Program
DX: K62.5 Hemorrhage of anus and rectum (principal); Q85.82 Other Cowden syndrome; R55 Syncope and collapse; E87.20 Acidosis, unspecified; E87.6 Hypokalemia; E89.0 Postprocedural hypothyroidism; G89.29 Other chronic pain; F17.290 Nicotine dependence, other tobacco product, uncomplicated; Z79.890 Hormone replacement therapy; Z79.899 Other long term (current) drug therapy; Z88.0 Allergy status to penicillin; Z88.1 Allergy status to other antibiotic agents; Z88.2 Allergy status to sulfonamides; Z88.6 Allergy status to analgesic agent; Z88.8 Allergy status to other drugs, medicaments and biological substances
CPT/HCPCS: 36415; 74177; 80048; 80053; 83605; 85014; 85018; 85025; 93005; 93010; 96365-59; 96366; 96375; 96376; 99285-25; A9270; G0378; J2270; J2405; J2470; J2765; J3010; J3480; J7030; J7040; Q9967